=== PATIENT | female | born 1945 | race Two or more races ===

== ENCOUNTER 2019-09-17 06:00 | Outpatient (CLI) | payer OTHER ==
[~2019-09-17] VITALS: Ht 152.4 cm; Wt 56.2 kg
[2019-09-17] MEDS ORDERED: SYNTHROID50 MCG PO (09:38)
== END 2019-09-17 06:05 | disposition home or self-care (01) ==
LOC: LAB 06:00 → EDSTATUS 09-24 08:30 → O/R 09-24 08:30 → SURH 09-24 08:30
PROVIDERS: ATTEND Obstetrics & Gynecology Gynecologic Oncology
DX: C53.9 Malignant neoplasm of cervix uteri, unspecified (principal); R97.1 Elevated cancer antigen 125 [CA 125]; D64.89 Other specified anemias; N39.0 Urinary tract infection, site not specified; Z20.828 Contact with and (suspected) exposure to other viral communicable diseases; B34.2 Coronavirus infection, unspecified; Z01.810 Encounter for preprocedural cardiovascular examination; Z01.812 Encounter for preprocedural laboratory examination; Z01.811 Encounter for preprocedural respiratory examination